=== PATIENT | female | born 1975 | race Caucasian/White ===

== ENCOUNTER → 2018-01-23 | Outpatient (CLI) | payer OTHER ==
[~2018-01-23] VITALS: Ht 154.9 cm; Wt 79.4 kg
[~2018-01-23] MED LIST: ACETAMINOPHEN325 M1 PO; AMLODIPINE BESY10 MG PO; AMLODIPINE PO; ANTACID; ASCRIPTIN 325325 MG PO; ASPIRIN PO; ASPIRIN325 PO; AUGMENTIN 875875 MG PO; BLOOD PRESSURE MED; CALCIUM CA; CARDURA2 MG PO; CATAPRES-TTS 10.1 MG TL; CILOXAN; CLONIDINE; CLONIDINE HCL0.1 MG PO; CLONIDINE HCL0.2 M2 PO; CLONIDINE PO; COLACE 100 MG100 MG PO; COLACE100 MG; COMPAZINE10 M1 PO; COREG; CORTISPORIN CR7.5 G1 TOP; DILANTIN100 MG PO; EPOGEN10000 UNIT SC; EPOGEN2000 UNIT/ SUBQ; EPOGEN20000 UNI2 IM; FLAGYL500 MG PO; FLEXERIL PO; GABAPENTIN 100100 MG PO; GLYCOLAX POWDER17 G1 PO; HYDROCODON-ACE1 EAC7 PO; HYDROCODONE-AP1 EACH; LEVOTHYROXINE25 MCG PO; LISINOPRIL10 MG PO; LISINOPRIL40 MG PO; LOPRESSOR50 PO; LORTAB 7.5/5001 TA3 PO; METOCLOPRAMIDE10 MG PO; MICARDIS 80 MG80 MG PO; MIRALAX; MOM; NEPHROCAPS SOFT1 CAP PO; NEPHROCAPS SOFTG1 MG PO; NIACINAMIDE500 M1 PO; NORCO 5-325 TA1 EACH PO; NORVASC 5 MG TAB5 MG; NORVASC 5 MG TAB5 MG PO; PHENERGAN 25 MG25 M1 PO; PHENYTOIN100 MG/4 M PO; PHOSLO; PHOSLO667 MG PO; PRILOSEC 20 MG20 MG PO; PROCRIT; PROTONIX40 M2 PO; REGLAN 10 MG TA10 MG PO; RENAGEL PO; TOPAMAX100 MG PO; TOPAMAX200 MG PO; TRAZODONE HCL100 MG PO; TUMS E.S.750 MG PO; TYLENOL EX-STR500 M2; VIACTIV; VICODIN 5-5001 EACH PO; ZOCOR 20 MG TAB20 M1 PO; ZOLPIDEM TARTRA10 MG PO
[2018-01-23 13:53] VITALS: BP 222/114
== END ==
LOC: PAIN 07:04
DX: M79.605 Pain in left leg (principal); M25.551 Pain in right hip; M06.9 Rheumatoid arthritis, unspecified; I10 Essential (primary) hypertension; Z79.891 Long term (current) use of opiate analgesic